=== PATIENT | female | born 1955 | race Caucasian/White ===

== ENCOUNTER 2017-08-28 07:01 | Day surgery (SDC) | payer MEDICARE, MEDICAID ==
[2017-08-28] MEDS ORDERED: Midazolam 1 MG/ML 2 ML SDV ONE (07:21)
[2017-08-28] MEDS ORDERED: Propofol 200 MG/20 ML SDV ONE (07:21)
[2017-08-28] MEDS ORDERED: fentaNYL 100 MCG/2 ML SDV ONE (07:21)
[2017-08-28] MEDS ORDERED: Lactated Ringers 1,000 ML IV SCH (07:30)
[2017-08-28] MEDS ORDERED: Ketorolac 60 MG/2 ML SDV IM ONE (07:37)
[2017-08-28] MEDS ORDERED: Glycopyrrolate 0.2 MG/ML 2 ML SDV IVPUSH ONE (08:15)
[2017-08-28] MEDS ORDERED: Cyanocobalamin (Vitamin B12) 1,000 MCG/ML SDV IM ONE (08:15)
[2017-08-28] MEDS ORDERED: MVI, Adult with Vitamin K 10 ML, Thiamine 200 MG, Chromium/Copper/Mang/Selen/Zn 1 ML in... IV ONE ×4 (09:30)
[2017-08-28 11:29] VITALS: BP 151/91
--- NOTE | 2017-09-01 14:19 | OR ---
DATE OF PROCEDURE: 08/28/2017 PREOPERATIVE DIAGNOSIS: Bile reflux Martell limb and pouch suggestive of partial small bowel obstruction. POSTOPERATIVE DIAGNOSIS: Bile reflux Martell limb and pouch suggestive of partial small bowel obstruction. PROCEDURE PERFORMED: Upper GI endoscopy with biopsies of gastric pouch for CLOtest. ANESTHESIA: IV sedation. INDICATION FOR PROCEDURE: A 62-year-old presenting with long-term nausea status post Martell- en-Y gastric bypass with some worsening epigastric discomfort as well as some reflux symptoms. The plan is to proceed with upper GI endoscopy with biopsies and/or dilation as indicated. Potential risks including bleeding and perforation were discussed, and the patient wishes to proceed. DETAILS OF PROCEDURE: The patient was taken to the operating room and placed in a left lateral decubitus position. IV sedation was administered, after which the upper GI endoscope was passed orally through the length of the esophagus into the gastric pouch and from through the gastrojejunostomy roughly 20 cm into the Martell limb. The findings included normal upper esophageal sphincter, and esophageal body. If in the distal esophagus and gastric pouch and Martell limb extending into Martell limb there's quite a bit in the way of right in the way of retained bile. Bile that get more concentrated when passed further down into the Martell limb. There did not appear to be any evidence of gastrogastric fistula. There is no significant stricturing or significant inflammation seen at any point during the course of the exam and would appear most of the symptoms are likely related to the patient's ongoing bile reflux that latter likely representing symptoms of partial small bowel obstruction. Biopsy obtained from the gastric pouch, sent for CLOtest for H. pylori. Minimal bleeding from the biopsy sites were seen and the procedure then concluded. After discussion with family the patient will proceed with admission of the patient next week for diagnostic laparoscopy, laparotomy if necessary, and examination of the small bowel component of gastric bypass with revision and or lysis of adhesions as indicated to be done. Her and her are made aware that this may not necessarily resolve all of her symptoms. At this point, there appeared to be no other reasonable explanation particularly given the bouts of the long-term nature of the nausea that she has been having. Waldo Lagunas MD /[id number]
== END 2017-08-28 12:00 | disposition home or self-care (01) ==
LOC: JP.SDS 07:01
PROVIDERS: ATTEND Surgery
DX: E78.70 Disorder of bile acid and cholesterol metabolism, unspecified (principal); F32.9 Major depressive disorder, single episode, unspecified; Z98.84 Bariatric surgery status; Z88.2 Allergy status to sulfonamides; Z88.1 Allergy status to other antibiotic agents
CPT/HCPCS: 43239; 87081; J1885; J2250; J2704; J3010; J3411; J3420; J3490; J7120

== ENCOUNTER 2020-03-07 06:48 | Day surgery (SDC) | payer MEDICARE, MEDICAID ==
[2020-03-07] MEDS ORDERED: Dextrose 5%-Lactated Ringers 1,000 ML IV SCH (07:45)
[2020-03-07] MEDS ORDERED: Midazolam 1 MG/ML 2 ML SDV ONE (08:25)
[2020-03-07] MEDS ORDERED: fentaNYL 100 MCG/2 ML SDV ONE (08:25)
[2020-03-07] MEDS ORDERED: Propofol 200 MG/20 ML SDV ONE (08:25)
[2020-03-07] MEDS ORDERED: Ondansetron 4 MG/2 ML SDV ONE (08:44)
[2020-03-07] MEDS ORDERED: Dexamethasone 4 MG/ML SDV ONE (08:44)
[2020-03-07 11:42] VITALS: BP 137/85; PULSE 61
--- NOTE | 2020-03-13 16:12 | OR ---
DATE OF PROCEDURE: 03/07/2020 SURGEON: Waldo Lagunas MD PREOPERATIVE DIAGNOSES: Dysphagia and early satiety with postprandial abdominal pain. POSTOPERATIVE DIAGNOSES: Normal exam, status post esophagogastrectomy with Martell-en-Y reconstruction. OPERATIVE PROCEDURE: Upper gastrointestinal endoscopy with dilation of esophagojejunostomy (23916). ANESTHESIA: IV sedation. INDICATIONS FOR PROCEDURE: The patient is status post esophagogastrectomy as part of a revisional procedure. She presents now with some dysphagia and early satiety as well as postprandial crampy abdominal pain. Plan is to proceed with upper GI endoscopy with biopsies and/or dilation as indicated. Potential risks including bleeding and perforation were discussed, and the patient wishes to proceed. DETAILS OF PROCEDURE: The patient was taken to the operating room and placed in a left lateral decubitus position. IV sedation was administered after which the upper GI endoscope was passed orally through the length of the esophagus, into the area of the esophagojejunostomy, and from there into the Martell limb up to 20 cm. Overall, no significant abnormalities were identified. The anastomosis itself was really wide open. There was no retained food or fluid, had minimal if any inflammation in the area. Just to ascertain whether or not there might be some ability to dilate this, a 54-Yi balloon dilator was deployed across the anastomosis, but this did not result in any significant increased diameter. The dilator was removed and the procedure then concluded. Plan will be to proceed with an upper GI x-ray and small-bowel follow-through tomorrow to further delineate the patient's functional anatomy at this time, and we will see her after that exam has been completed. Waldo Lagunas MD /[id number]
== END 2020-03-07 11:59 | disposition home or self-care (01) ==
LOC: JP.SDS 06:48
PROVIDERS: ATTEND Surgery
DX: R13.10 Dysphagia, unspecified (principal); R68.81 Early satiety; K21.9 Gastro-esophageal reflux disease without esophagitis; Z98.84 Bariatric surgery status
CPT/HCPCS: 43249; J1100; J2250; J2405; J2704; J3010; J7121

== ENCOUNTER 2020-03-16 06:30 | Inpatient (IN) | payer MEDICARE, MEDICAID ==
[2020-03-16] MEDS ORDERED: cefOXitin 2 GM Vial ONE (07:59)
[2020-03-16] MEDS ORDERED: Scopolamine 1.5 MG Transdermal Patch TRDERM SCH (08:00)
[2020-03-16] MEDS ORDERED: Gabapentin 300 MG Cap PO ONE (08:00)
[2020-03-16] MEDS ORDERED: Acetaminophen 500 MG Tab PO ONE (08:00)
[2020-03-16] MEDS ORDERED: Dextrose 5%-Lactated Ringers 1,000 ML IV SCH (08:30)
[2020-03-16] MEDS ORDERED: Dexamethasone 4 MG/ML SDV ONE (08:41)
[2020-03-16] MEDS ORDERED: Propofol 200 MG/20 ML SDV ONE (08:41)
[2020-03-16] MEDS ORDERED: fentaNYL 250 MCG/5 ML SDV ONE (08:41)
[2020-03-16] MEDS ORDERED: Ondansetron 4 MG/2 ML SDV ONE (08:41)
[2020-03-16] MEDS ORDERED: Succinylcholine 200 MG/10 ML MDV ONE (08:41)
[2020-03-16] MEDS ORDERED: Rocuronium 50 MG/5 ML Vial ONE (08:41)
[2020-03-16] MEDS ORDERED: Glycopyrrolate 0.2 MG/ML 5 ML MDV ONE (08:41)
[2020-03-16] MEDS ORDERED: Neostigmine Methylsulfate 1 MG/ML 5 ML Syringe ONE (08:41)
[2020-03-16] MEDS ORDERED: Lactated Ringers 1,000 ML ONE (08:43)
[2020-03-16] MEDS ORDERED: cefOXitin 2 GM in Sodium Chloride 0.9% 50 ML IV ONE (09:00)
[2020-03-16] MEDS ORDERED: Magnesium Sulfate 4.8 GM in Sodium Chloride 0.9% 250 ML IV ONE (09:15)
[2020-03-16] MEDS ORDERED: Ketamine 500 MG/5 ML MDV IV SCH (09:15)
[2020-03-16] MEDS ORDERED: Ketamine 50 MG in Sodium Chloride 0.9% 49.5 ML IV SCH (09:15)
[2020-03-16] MEDS ORDERED: Magnesium Sulfate 3 GM in Sodium Chloride 0.9% 100 ML IV SCH (09:15)
[2020-03-16] MEDS ORDERED: Ropivacaine 50 ML, dexAMETHasone 8 MG, EPINEPHrine 0.4 MG, Sodium Chloride 0.9% 27.6 ML NERVRT SCH ×4 (09:15)
[2020-03-16] MEDS ORDERED: HYDROmorphone/Normal Saline 15 MG/30 ML PCA IV PRN ×2 (11:39→11:43)
[2020-03-16] MEDS ORDERED: diphenhydrAMINE 50 MG/ML SDV IVPUSH PRN ×2 (11:39→13:00)
[2020-03-16] MEDS ORDERED: Naloxone 0.4 MG/ML SDV IVPUSH PRN (11:39)
[2020-03-16] MEDS ORDERED: Ondansetron 4 MG/2 ML SDV IVPUSH PRN (11:39)
[2020-03-16] MEDS ORDERED: diphenhydrAMINE 25 MG Cap PO PRN (11:39)
[2020-03-16] MEDS: HYDROmorphone/Normal Saline 15 MG/30 ML PCA IV PRN ×2 (11:55→12:00)
[2020-03-16] MEDS ORDERED: Naloxone 0.4 MG/ML SDV IV PRN (12:00)
[2020-03-16] MEDS ORDERED: hydrOXYzine HCL 100 MG/2 ML SDV IM ONE (12:00)
[2020-03-16] MEDS ORDERED: Meclizine 25 MG Tab PO PRN (12:46)
[2020-03-16] MEDS ORDERED: hydrOXYzine HCL 100 MG/2 ML SDV IM PRN (13:00)
[2020-03-16] MEDS ORDERED: Labetalol 20 MG/4 ML Syringe IVPUSH PRN (13:00)
[2020-03-16] MEDS ORDERED: Acetaminophen 500 MG Tab PO PRN (13:00)
[2020-03-16] MEDS ORDERED: Metoclopramide 10 MG/2 ML SDV IVPUSH PRN (13:00)
[2020-03-16] MEDS ORDERED: Scopolamine 1.5 MG Transdermal Patch TRDERM PRN (13:13)
[2020-03-16] MEDS: Ondansetron 4 MG/2 ML SDV IVPUSH PRN ×2 (15:05→21:52)
[2020-03-16] MEDS: Gabapentin 300 MG Cap PO SCH ×2 (15:06→21:43)
[2020-03-16] MEDS: SCOPOLAMINE PATCH CHECK TOP SCH (15:06)
[2020-03-16] MEDS: cefOXitin 2 GM in Sodium Chloride 0.9% 50 ML IV SCH ×2 (15:59→21:41)
[2020-03-16] MEDS ORDERED: MVI, Adult with Vitamin K 10 ML, Thiamine 200 MG, Zinc/Copper/Manganese/Selenium 1 ML i... IV SCH ×4 (16:00)
[2020-03-16] MEDS: Pantoprazole 40 MG Vial IVPUSH SCH (16:06)
[2020-03-16] MEDS: Acetaminophen 500 MG Tab PO SCH (16:06)
[2020-03-16] MEDS: Rizatriptan 10 MG Tab.DIS PO PRN (17:01)
[2020-03-16] MEDS: Heparin Sodium 5,000 Units/ML Vial SUBCUT SCH (19:27)
[2020-03-16] MEDS: ClonazePAM 0.5 MG Tab PO SCH (21:44)
[2020-03-16] MEDS: Dextrose 5%-Lactated Ringers 1,000 ML IV SCH (21:46)
[2020-03-17] MEDS: Acetaminophen 500 MG Tab PO SCH ×4 (00:50→23:01)
[2020-03-17] MEDS: cefOXitin 2 GM in Sodium Chloride 0.9% 50 ML IV SCH ×4 (02:53→20:28)
[2020-03-17] MEDS ORDERED: Iopamidol 612 MG/ML 50 ML SDV PO STA (02:57)
[2020-03-17] MEDS: Dextrose 5%-Lactated Ringers 1,000 ML IV SCH (04:31)
[2020-03-17] MEDS ORDERED: Dextrose 5%-Lactated Ringers 1,000 ML IV SCH (07:15)
[2020-03-17] MEDS: Rizatriptan 10 MG Tab.DIS PO PRN ×2 (07:22→16:19)
[2020-03-17] MEDS: Ondansetron 4 MG/2 ML SDV IVPUSH PRN (07:22)
[2020-03-17] MEDS: Heparin Sodium 5,000 Units/ML Vial SUBCUT SCH ×2 (07:23→20:12)
[2020-03-17] MEDS: Cetirizine 10 MG Tab PO SCH (08:20)
[2020-03-17] MEDS: Fluticasone Propionate Nasal Spray 16 GM Bottle NASBOTH SCH (08:21)
[2020-03-17] MEDS: MYRBETRIQ 50 MG PO SCH (08:21)
[2020-03-17] MEDS: Sertraline 50 MG Tab PO SCH (08:21)
[2020-03-17] MEDS: Aspirin 81 MG Tab.EC PO SCH (08:21)
[2020-03-17] MEDS: Celecoxib 200 MG Cap PO SCH ×2 (08:21→20:17)
[2020-03-17] MEDS: Gabapentin 300 MG Cap PO SCH ×3 (08:21→20:17)
[2020-03-17] MEDS: CRANBERRY 500 MG PO SCH (08:22)
[2020-03-17] MEDS: Propranolol 80 MG Cap.ER PO SCH (08:22)
[2020-03-17] MEDS: SCOPOLAMINE PATCH CHECK TOP SCH (08:23)
[2020-03-17] MEDS: ClonazePAM 0.5 MG Tab PO SCH ×2 (08:25→20:28)
--- NOTE | 2020-03-17 09:01 | CR ---
[facility] HISTORY: Postbariatric surgery FINDINGS: Patient swallowed water-soluble contrast. Upright views of the abdomen show no evidence of extravasation or obstruction. There is a surgical drain in the left upper quadrant. IMPRESSION: Status post bariatric surgery No extravasation or obstruction seen
--- NOTE | 2020-03-17 09:16 | PN ---
DATE OF SERVICE: 03/17/2020 SUBJECTIVE: Diana is postoperative day #1. Her pain has been controlled using a MEDICAL PRACTICE ASSISTANT. Afebrile. Oral intake 440. Urine output via Momin catheter is 1800. SAGAR drain put out 40 mL of a light red drainage. REVIEW OF SYSTEMS: Remainder of review of systems negative for any pertinent positives and negatives. OBJECTIVE: GENERAL: Diana Masters is a pleasant 64-year-old female. VITAL SIGNS: TPR is 97,4, 56, 18, and blood pressure 147/76. HEENT: Negative. NECK: Supple. HEART: Regular rate and rhythm. LUNGS: Clear. ABDOMEN: Dressing dry and intact. Abdominal binder is on. EXTREMITIES: Without peripheral edema. ASSESSMENT: Exploratory laparotomy with lysis of adhesions with revision of the Martell-en-Y gastric bypass, closure of gastrogastric fistula, and alter of the small bowel limb lengths and separate small bowel resection. POSTOPERATIVE DIAGNOSES: Weight regain, status post Martell-en-Y gastrogastric fistula and area of partial small bowel obstruction. Date of procedure: 03/16/2020. PLAN: 1. Discontinue Momin catheter. 2. Decrease IV to 100 mL per hour. 3. Step 2 gastric bypass diet without cereal. 4. May shower. 5. Discontinue telemetry. 6. Zofran 4 mg ODT every 4 hours p.r.n. nausea. 7. Referral made to home health care. The patient is requesting home health care when discharged. 8. We will evaluate p.r.n. or in a.m. Veronique Rodriguez PA-C /[id number]
[2020-03-17] MEDS: Pantoprazole 40 MG Vial IVPUSH SCH (15:07)
[2020-03-17] MEDS ORDERED: MVI, Adult with Vitamin K 10 ML, Thiamine 200 MG, Zinc/Copper/Manganese/Selenium 1 ML i... IV SCH ×8 (16:00)
[2020-03-17] MEDS: Ondansetron 4 MG Tab.DIS PO PRN (16:19)
[2020-03-17] MEDS ORDERED: Polyethylene Glycol 3350 Powder 17 GM Packet PO ONE (18:14)
[2020-03-18] MEDS: Heparin Sodium 5,000 Units/ML Vial SUBCUT SCH ×2 (07:26→20:14)
[2020-03-18] MEDS: Acetaminophen 500 MG Tab PO SCH ×3 (07:26→23:08)
[2020-03-18] MEDS ORDERED: Sodium Chloride 0.9% 10 ML Syringe IV PRN (07:58)
[2020-03-18] MEDS: Fluticasone Propionate Nasal Spray 16 GM Bottle NASBOTH SCH (08:20)
[2020-03-18] MEDS: Aspirin 81 MG Tab.EC PO SCH (08:20)
[2020-03-18] MEDS: Gabapentin 300 MG Cap PO SCH ×3 (08:21→20:14)
[2020-03-18] MEDS: Sertraline 50 MG Tab PO SCH (08:21)
[2020-03-18] MEDS: Propranolol 80 MG Cap.ER PO SCH (08:21)
[2020-03-18] MEDS: Cetirizine 10 MG Tab PO SCH (08:21)
[2020-03-18] MEDS: SCOPOLAMINE PATCH CHECK TOP SCH (08:22)
[2020-03-18] MEDS: Celecoxib 200 MG Cap PO SCH ×2 (08:22→20:14)
[2020-03-18] MEDS ORDERED: Polyethylene Glycol 3350 Powder 119 GM Bottle PO ONE (08:30)
[2020-03-18] MEDS ORDERED: Cyanocobalamin (Vitamin B12) 1,000 MCG/ML SDV IM ONE (09:00)
[2020-03-18] MEDS: ClonazePAM 0.5 MG Tab PO SCH ×2 (09:14→20:14)
[2020-03-18] MEDS: oxyCODONE 5 MG Tab PO PRN ×3 (09:14→23:08)
--- NOTE | 2020-03-18 09:26 | PN ---
DATE OF SERVICE: 03/18/2020 The patient has been afebrile with stable vital signs, passing flatus. No bowel movement as of yet. We will restart . We will give her some additional MiraLax today, go over to oral pain medication. She may discontinue the SAGAR drain. She may be ready for discharge home tomorrow. Waldo Lagunas MD /[id number]
[2020-03-18] MEDS: CRANBERRY 500 MG PO SCH (11:31)
[2020-03-18] MEDS: MYRBETRIQ 50 MG PO SCH (11:32)
[2020-03-18] MEDS: Cyclobenzaprine 10 MG Tab PO PRN (13:14)
[2020-03-18] MEDS: Pantoprazole 40 MG Tab.CR PO SCH (16:29)
[2020-03-18] MEDS: Rizatriptan 10 MG Tab.DIS PO PRN (19:16)
[2020-03-18] MEDS: Ondansetron 4 MG Tab.DIS PO PRN (19:32)
[2020-03-19] MEDS: Cyclobenzaprine 10 MG Tab PO PRN (01:38)
[2020-03-19] MEDS: oxyCODONE 5 MG Tab PO PRN ×3 (05:34→19:33)
[2020-03-19] MEDS: Ondansetron 4 MG Tab.DIS PO PRN ×2 (05:40→11:48)
[2020-03-19] MEDS: Heparin Sodium 5,000 Units/ML Vial SUBCUT SCH ×2 (07:27→20:29)
[2020-03-19] MEDS: Acetaminophen 500 MG Tab PO SCH ×3 (07:28→23:09)
[2020-03-19] MEDS: CRANBERRY 500 MG PO SCH (08:46)
[2020-03-19] MEDS: Gabapentin 300 MG Cap PO SCH ×3 (08:46→20:29)
[2020-03-19] MEDS: Fluticasone Propionate Nasal Spray 16 GM Bottle NASBOTH SCH (08:46)
[2020-03-19] MEDS: MYRBETRIQ 50 MG PO SCH (08:46)
[2020-03-19] MEDS: Sertraline 50 MG Tab PO SCH (08:46)
[2020-03-19] MEDS: Celecoxib 200 MG Cap PO SCH ×2 (08:46→20:29)
[2020-03-19] MEDS: Cetirizine 10 MG Tab PO SCH (08:47)
[2020-03-19] MEDS: Propranolol 80 MG Cap.ER PO SCH (08:47)
[2020-03-19] MEDS: Aspirin 81 MG Tab.EC PO SCH (08:48)
[2020-03-19] MEDS: SCOPOLAMINE PATCH CHECK TOP SCH (08:49)
[2020-03-19] MEDS: ClonazePAM 0.5 MG Tab PO SCH ×2 (08:51→20:33)
--- NOTE | 2020-03-19 10:12 | OR ---
DATE OF PROCEDURE: 03/16/2020 SURGEON: Waldo Lagunas MD PREOPERATIVE DIAGNOSIS: Weight regain status post Martell-en-Y gastric bypass associated with gastrogastric fistula. POSTOPERATIVE DIAGNOSES: 1. Weight regain status post Martell-en-Y gastric bypass associated with gastrogastric fistula. 2. Partial small bowel obstruction at location of previous enteroenterostomy. OPERATIVE PROCEDURES: 1. Exploratory laparotomy with lysis of adhesions with revision of Martell-en-Y gastric bypass (77451) including: a. Closure of gastrogastric fistula. b. Alteration of small bowel limb-lengths to facilitate increased weight loss. 2. Separate small bowel resection (04936). ANESTHESIA: General. HAIRSPRING STUDDER: Veronique Rodriguez PA-C INDICATIONS FOR PROCEDURE: This is a 64-year-old female presenting with longstanding morbid obesity, recently had a significant weight regain after otherwise a fairly successful gastric bypass. Upper endoscopy revealed a relatively large gastric pouch. Subsequent upper GI x-ray showed a large gastrogastric fistula which was not evident at the time of the upper endoscopy and the plan is to proceed with exploratory laparotomy and closure of gastrogastric fistula to facilitate additional weight loss. The patient will also have the Martell limb distalized in order to create a smaller common limb to facilitate additional weight loss. Potential risks of the procedure including bleeding, infection, leaks from various GI tract closures, problems with the distalization particularly in terms of possible frequent loose bowel movements and other problems related to nutrition associated with malabsorption were gone over along with the remote possibility of cardiopulmonary, septic, or hemorrhagic complications leading to , and the patient wishes to proceed. DETAILS OF PROCEDURE: The patient was taken to the operating room and after general endotracheal anesthesia was induced, a Momin catheter was inserted, and the abdomen prepped and draped. An upper midline incision from the xiphoid above the umbilicus was made, carried down through the full-thickness abdominal wall. Upon entering the peritoneal cavity, fairly extensive adhesions were encountered which were taken down, and at this point, attention was taken to the area of the gastrogastric fistula. Some adhesions between the liver and the previous gastrojejunostomy and pouch formation were taken down. An Paco tube was then placed per Anesthesia orally across the gastric pouch and the Martell limb. This then allowed division of the stomach adjacent to the gastric pouch with a series of FRIDA melani. Once the stomach attached to the gastric pouch had been divided from the otherwise bypassed stomach, the Paco tube was used as a template to staple the attachments of that portion of the bypassed stomach which would include the fistula again with a series of FRIDA melani and that gastric specimen was delivered from the field. At that point, the entire gastric pouch and area of gastrojejunostomy could be fully inserted along with the surgeon's hand to assure that there was no remaining communication between that segment of the GI tract and the bypassed portion of the stomach. The small bowel was then evaluated. The patient had a previous enteroenterostomy fairly proximal along what was now the biliopancreatic limb. Proximal to that, there was quite marked dilation indicating partial obstruction at that location. That segment of small bowel was then resected with division proximally and distally with the FRIDA stapler as was the underlying mesentery. A [id number] enteroenterostomy reconstructing the GI tract continuity was accomplished with an internal firing of the FRIDA 60 mm stapler followed by common opening being closed with the same stapler. The angles were anastomosed and mesenteric defects were approximated with some 3-0 Vicryl stitch and attention then taken to the Martell limb where the Martell limb attached to the more distal small bowel. This was detached. A small segment of this was resected and was now measured out at 80 cm. The ileocecal valve was then identified and the small bowel then traced out 230 cm proximal to that, thus giving the patient a total alimentary limb of 310 cm which in terms of length was predominantly the common limb. The same series of anastomosis was then accomplished as per the previous small bowel anastomosis and in this case the mesenteric defect was approximated with some 2-0 silk stitch to provide some permanency. The biliopancreatic limb was measured out at this point to be 260 cm which being somewhat long should help with the patient's overall metabolic status over time. The abdomen was irrigated with antibiotic-containing saline solution. The various anastomoses and closures of the GG fistula were then reinforced with fibrin sealant and a single Huber-Holliday drain placed through a stab wound in the left subcostal area adjacent to the area of the gastrogastric fistula takedown and from there up and along the splenic fossa. The midline fascia was then approximated with #2 Vicryl stitch, subcutaneous tissue with 2 layers of 3-0 and 4-0 Vicryl stitch deep, and skin with melani. Drains were affixed with 4-0 Vicryl stitch. Prior to closure, bilateral transversus abdominis plane blocks had also been placed and the patient was taken to the recovery room in satisfactory condition. Physician commissary assistant, Veronique Rodriguez, played an essential role in assisting in this case, helping to position the patient, retract structures as needed, as well as suturing and cutting sutures when indicated. Her presence improved patient safety and decreased the operative time. Waldo Lagunas MD /[id number]
--- NOTE | 2020-03-19 14:25 | PN ---
DATE OF SERVICE: 03/19/2020 The patient has been afebrile with stable vital signs. She did have some explosive diarrhea overnight. She was started back on her Linzess yesterday and we remain fine with that current dose of 290 mcg daily even if it is too high. We will put on it until that sorts out, then probably home tomorrow. Waldo Lagunas MD /[id number]
[2020-03-19] MEDS: Pantoprazole 40 MG Tab.CR PO SCH (16:12)
[2020-03-20] MEDS: oxyCODONE 5 MG Tab PO PRN ×2 (02:41→08:55)
[2020-03-20] MEDS: Cyclobenzaprine 10 MG Tab PO PRN (05:18)
[2020-03-20] MEDS: Ondansetron 4 MG Tab.DIS PO PRN ×2 (05:18→08:55)
[2020-03-20 07:17] VITALS: BP 100/62; PULSE 56
--- NOTE | 2020-03-20 08:19 | DISCH ---
ADMISSION DIAGNOSES: Gastrogastric fistula, weight regain, status post Martell-en-Y gastric bypass surgery associated with gastrogastric fistula, and partial small bowel obstruction at location of previous enteroenterostomy. DISCHARGE DIAGNOSES: 1. Exploratory laparotomy with lysis of adhesions with revision of Martell-en-Y gastric bypass surgery including: a. Closure of gastrogastric fistula. b. Alteration of small bowel limb lengths to facilitate increased weight loss. 2. Separate small-bowel resection. HISTORY: Diana Masters is a pleasant 64-year-old female presenting with longstanding morbid obesity. Recently had a significant weight regain after maintaining weight for quite some time. An upper endoscopy revealed a large gastric pouch, and after preoperative evaluation, discussion of possible risks and possible complications, she wished to proceed with surgical procedure. HOSPITAL COURSE: Diana had her surgery on 03/16/2020. Surgeon, Waldo Lagunas MD. She had no operative complications. On postoperative day #1, IV rate was decreased to 100 mL per hour, Momin catheter was discontinued, and she was started on a step 2 gastric bypass diet. On postoperative day #2, she was started on bowel stimulation and advanced to a step 3 diet. On postoperative day 3, she was having loose stools, which did resolve themselves later in the day, and on 03/20/2020, she was able to be discharged to home without any complications. PHYSICAL EXAMINATION: GENERAL: Diana Masters is a pleasant 64-year-old female. VITAL SIGNS: Height is 5 feet 4 inches, weight is 220 pounds. BMI 37.9. TPR is 96.9, 58, 16. Blood pressure 114/51. HEENT: Negative. NECK: Supple. HEART: Regular rate and rhythm. LUNGS: Clear. ABDOMEN: Incisions look good. Abdominal binder is on. EXTREMITIES: Without peripheral edema. DISPOSITION: Discharged to home with home health care agency. CONDITION: Stable. FOLLOWUP APPOINTMENT: With Veronique Rodriguez PA-C, at [facility] on 03/24/2020 at 10:15 a.m. HOME MEDICATIONS: Celebrex 200 mg p.o. daily, #14; oxycodone 5 mg p.o. q.4 hours p.r.n. pain, #42. To resume all home medications. Tylenol 1000 mg q.8 hours; multivitamin 1 chewable b.i.d.; vitamin B12 1000 mcg sublingual daily; calcium 600 mg p.o. daily; vitamin B complex 1 daily; Zoloft 50 mg daily; cranberry 500 mg p.o. daily; vitamin D3 5000 international units p.o. daily; aspirin 81 mg p.o. daily; Trintellix 20 mg p.o. daily; meclizine, Antivert 25 mg p.o. t.i.d. p.r.n.; Linzess 290 mcg p.o. daily; mirabegron, Myrbetriq 50 mg p.o. daily; Zyrtec 10 mg p.o. daily; propranolol LA 80 mg p.o. daily; Zomig 5 mg p.o. p.r.n. headache; Maxalt 10 mg p.o. t.i.d. p.r.n.; Zofran ODT 4 mg q.8 hours p.r.n. nausea; Pepcid 20 mg p.o. b.i.d.; clonazepam 0.5 mg p.o. b.i.d.; hydroxyzine 25 mg p.o. t.i.d. p.r.n.; Flonase 2 sprays in each nostril daily; Neurontin 600 to 900 mg p.o. q.h.s and Neurontin 300 mg p.o. q.a.m.; Flexeril 5 mg p.o. t.i.d. p.r.n.; Ultram 50 mg p.o. b.i.d. p.r.n., do not take with oxycodone; and Rozerem 8 mg p.o. q.p.m. DIET: Step 3 gastric bypass diet until next appointment. ACTIVITY: No lifting greater than 10 pounds for 6 weeks. Other activity: Walk 6 times daily inside your home. Shower/bathing: May shower. Keep operative site clean and dry. Wear abdominal binder for 6 weeks and then as tolerated. Notify provider if any fever, increased pain, swelling, redness, drainage, nausea, vomiting. SPECIAL INSTRUCTION: Use incentive spirometer 10 times every hour while awake for 1 week. /[id number]
[2020-03-20] MEDS: Cetirizine 10 MG Tab PO SCH (08:43)
[2020-03-20] MEDS: Heparin Sodium 5,000 Units/ML Vial SUBCUT SCH (08:43)
[2020-03-20] MEDS: Celecoxib 200 MG Cap PO SCH (08:43)
[2020-03-20] MEDS: Aspirin 81 MG Tab.EC PO SCH (08:43)
[2020-03-20] MEDS: ClonazePAM 0.5 MG Tab PO SCH (08:44)
[2020-03-20] MEDS: MYRBETRIQ 50 MG PO SCH (08:44)
[2020-03-20] MEDS: Sertraline 50 MG Tab PO SCH (08:44)
[2020-03-20] MEDS: CRANBERRY 500 MG PO SCH (08:44)
[2020-03-20] MEDS: Acetaminophen 500 MG Tab PO SCH (08:44)
[2020-03-20] MEDS: Gabapentin 300 MG Cap PO SCH (08:44)
[2020-03-20] MEDS: Propranolol 80 MG Cap.ER PO SCH (08:44)
[2020-03-20] MEDS: Fluticasone Propionate Nasal Spray 16 GM Bottle NASBOTH SCH (08:45)
== END 2020-03-20 11:04 | disposition home health service (06) | DRG 327 ==
LOC: JP.SDSSCHI 06:30 → JP.SDS 06:30 → JP.MS 11:40 → EDSTATUS 12:15
PROVIDERS: ADMIT Surgery; ATTEND Surgery
PROC: 0DQ60ZZ Repair Stomach, Open Approach (ICD-10-PCS; principal; 2020-03-16)
PROC: 0D160ZA Bypass Stomach to Jejunum, Open Approach (ICD-10-PCS; principal; 2020-03-16)
PROC: 0DB60ZZ Excision of Stomach, Open Approach (ICD-10-PCS; principal; 2020-03-16)
PROC: 0DB80ZZ Excision of Small Intestine, Open Approach (ICD-10-PCS; principal; 2020-03-16)
DX: K56.600 Partial intestinal obstruction, unspecified as to cause (principal); K31.6 Fistula of stomach and duodenum; A69.20 Lyme disease, unspecified; R63.5 Abnormal weight gain; Z98.84 Bariatric surgery status; Z87.440 Personal history of urinary (tract) infections; Z85.828 Personal history of other malignant neoplasm of skin; E55.9 Vitamin D deficiency, unspecified; Z90.49 Acquired absence of other specified parts of digestive tract; Z90.710 Acquired absence of both cervix and uterus; Z98.51 Tubal ligation status; Z79.899 Other long term (current) drug therapy; Z88.1 Allergy status to other antibiotic agents; Z88.2 Allergy status to sulfonamides; Z88.8 Allergy status to other drugs, medicaments and biological substances; Z68.37 Body mass index [BMI] 37.0-37.9, adult
CPT/HCPCS: 36415; 74240; 74240-26; 86850; 86900; 86901; 88307; 93005; 94762; 97162-GP; 97530-GP; 97535-GP; A9270-GY; C9113; J0171; J0330; J0694; J1100; J1170; J1644; J2405; J2704; J2710; J2795; J3010; J3410; J3411; J3420; J3475; J3490; J7120; J7121; Q9967

== ENCOUNTER 2021-01-02 06:53 | Day surgery (SDC) | payer MEDICARE, MEDICAID ==
[2021-01-02] MEDS ORDERED: Midazolam 1 MG/ML 2 ML SDV ONE (07:02)
[2021-01-02] MEDS ORDERED: fentaNYL 100 MCG/2 ML SDV ONE (07:02)
[2021-01-02] MEDS ORDERED: Propofol 200 MG/20 ML SDV ONE (07:03)
[2021-01-02] MEDS ORDERED: Dextrose 5%-Lactated Ringers 1,000 ML IV SCH (07:30)
[2021-01-02 10:29] VITALS: BP 132/58; PULSE 56
--- NOTE | 2021-01-04 11:21 | OR ---
DATE OF PROCEDURE: 01/02/2021 SURGEON: Waldo Lagunas MD PREOPERATIVE DIAGNOSIS: Increased hunger status post Martell-en-Y gastric bypass. POSTOPERATIVE DIAGNOSIS: Weight regain with increased hunger status post Martell-en-Y gastric bypass with no abnormalities noted on upper GI endoscopy. OPERATIVE PROCEDURE: Upper GI endoscopy. ANESTHESIA: IV sedation. INDICATIONS FOR PROCEDURE: The patient is status post revision of a Martell-en-Y gastric bypass. The patient initially had felt a sense of early satiety, but this is now absent, and the patient reports that she has been gaining some weight and feels hungry most of the time. She presently reports quite a bit in the way of grazing in terms of her eating behavior and a significant amount of carbohydrate intake. To rule out any anatomically correctible problems, the patient is to undergo an upper GI endoscopy. Potential risks including bleeding and perforation were discussed, and the patient wishes to proceed. DETAILS OF PROCEDURE: The patient was taken to the operating room, placed in a left lateral decubitus position. IV sedation was administered, after which the upper GI endoscope was passed orally through the length of the esophagus into the gastric pouch through the gastrojejunostomy and roughly 20 cm into the Martell limb. Overall, no abnormalities were noted. No recurrent fistula was seen. The patient had a normally sized gastric pouch and gastrojejunostomy without significant inflammation. Scope was then withdrawn and the above findings reconfirmed and the procedure was then concluded. The patient will be set up to see Veronique Rodriguez in 2 to 3 weeks. The patient will likely need some dietary counseling, and perhaps addition of a medication to decrease her appetite. Waldo Lagunas MD /[id number]
== END 2021-01-02 11:05 | disposition home or self-care (01) ==
LOC: JP.SDS 06:53
PROVIDERS: ATTEND Surgery
DX: R63.5 Abnormal weight gain (principal); Z98.84 Bariatric surgery status
CPT/HCPCS: 36415; 43235; 80053; 82306; 82525; 82607; 82728; 82746; 83735; 84425; 84590; 84630; 85027; J2250; J2704; J3010; J7121